=== PATIENT | male | born 1955 | race Two or more races ===

== ENCOUNTER 2018-08-16 23:42 | Emergency (ER) | payer MEDICAID, OTHER ==
[~2018-08-16] VITALS: Ht 157.5 cm; Wt 46.0 kg
[2018-08-17] MEDS ORDERED: ibuprofen tablet 400 MG TABLET PO ONE (00:25)
[2018-08-17 01:16] VITALS: BP 151/103
== END 2018-08-17 01:17 | disposition home or self-care (01) ==
LOC: ER 23:42
DX: M79.661 Pain in right lower leg (principal); Z88.0 Allergy status to penicillin; V89.2XXA Person injured in unspecified motor-vehicle accident, traffic, initial encounter; Y93.89 Activity, other specified; Y92.488 Other paved roadways as the place of occurrence of the external cause; Y99.8 Other external cause status
CPT/HCPCS: 99281; 99282